=== PATIENT | male | born 1955 | race Caucasian/White ===

== ENCOUNTER 2016-07-10 09:32 | Day surgery (SDC) | payer MEDICAID ==
[~2016-07-10 09:32] MED LIST: LACTATED RINGERS 1,000 ML IV SCH
[2016-07-10] MEDS ORDERED: LACTATED RINGERS 1,000 ML ONE (11:37)
[2016-07-10] MEDS ORDERED: IV START KIT ONE (11:38)
[2016-07-10] MEDS ORDERED: PROPOFOL 20 ML IV ONE ×2 (11:39→11:58)
[2016-07-10] MEDS ORDERED: LIDOCAINE 2% (PRES FREE) 5 ML VIAL ONE (11:39)
--- NOTE | 2016-07-12 15:36 | SURGPATH ---
[facility] [address] [place] [id number] Patient Name: YANG MARSHALL JR MR#: [id number] : 1955 Gender: M Specimen #: [id number] Collected: 07/10/2016 Received: 07/11/2016 Reported: 07/12/2016 Submitting Phys: NAM JEREZ Copy To Phys: HALIE EMERSON [facility] Clinical History / Pre-Operative Diagnosis: SURVEILLANCE; RECTAL BLEEDING Specimen Source / Surgical Procedure Performed: SIGMOID POLYP AT 15 CM Interpretation: COLON, SIGMOID, POLYP AT 15 CM, POLYPECTOMY: - TWO FRAGMENTS OF TUBULAR ADENOMA Electronically Signed Out Beth Jordan M.D. Gross Description: The specimen is received in a formalin filled container labeled with the patient's name and "sigmoid polyp at 15 cm". Two polypoid reyes biopsies are 0.3 and 0.5 cm. Totally embedded in one cassette. Mohinder Cisse Microscopic Description: Two fragments of colonic mucosa are seen, which show crowded glands lined by hyperchromatic crowded epithelial cells. No high-grade dysplasia or carcinoma is seen. 1: 45219 D12.5
== END 2016-07-10 13:20 | disposition home or self-care (01) ==
LOC: SDC 09:32
PROVIDERS: ATTEND Internal Medicine Gastroenterology
PROC: 0DBN8ZX Excision of Sigmoid Colon, Via Natural or Artificial Opening Endoscopic, Diagnostic (ICD-10-PCS; principal; 2016-07-10)
DX: Z12.11 Encounter for screening for malignant neoplasm of colon (principal); K64.1 Second degree hemorrhoids; D12.5 Benign neoplasm of sigmoid colon; R12 Heartburn; J44.9 Chronic obstructive pulmonary disease, unspecified; E11.21 Type 2 diabetes mellitus with diabetic nephropathy; Z79.84 Long term (current) use of oral hypoglycemic drugs; E78.5 Hyperlipidemia, unspecified; Z79.82 Long term (current) use of aspirin